=== PATIENT | male | born 1955 ===

== ENCOUNTER 2021-09-14 07:54 | Outpatient (CLI) | payer MEDICARE | END 2021-09-14 07:55 | disposition home or self-care (01) | LOC: ULT 07:54 | PROVIDERS: ATTEND Internal Medicine Gastroenterology | DX: K21.9 Gastro-esophageal reflux disease without esophagitis (principal); R14.0 Abdominal distension (gaseous); R93.2 Abnormal findings on diagnostic imaging of liver and biliary tract | CPT/HCPCS: 76700 ==